=== PATIENT | male | born 1980 | race Caucasian/White ===

== ENCOUNTER 2017-02-17 16:10 | Emergency (ER) | payer OTHER ==
[~2017-02-17] VITALS: Ht 182.9 cm; Wt 66.3 kg
[~2017-02-17 16:10] MED LIST: ANDROGEL1.25 GM TD; ASPIR 8181 M1 PO
[2017-02-17] MEDS ORDERED: TESSALON PERLE100 MG PO (20:08)
[2017-02-17 20:32] VITALS: BP 109/68
== END 2017-02-17 20:32 | disposition home or self-care (01) ==
LOC: EME 16:10
DX: R05 Cough (principal); K21.9 Gastro-esophageal reflux disease without esophagitis
CPT/HCPCS: 71020; 99281; 99284

== ENCOUNTER → 2017-06-03 | Outpatient (CLI) | payer OTHER ==
[~2017-06-03] VITALS: Ht 182.9 cm; Wt 63.5 kg
[~2017-06-03] MED LIST changes: +ANDRODERM1 EACH TD; +ATARAX,VISTARIL25 MG PO; +AZITHROMYCIN500 M1 PO; +EFFEXOR50 MG PO; +OMEPRAZOLE40 M1 PO; +TESSALON PERLE100 MG PO
[2017-06-03 14:13] LABS: INTER. NORMALIZED RATIO 1.1; PROTHROMBIN TIME 12.4 SEC (10.2-12.9)
[2017-06-03 14:16] LABS: PTT 33.2 SEC (25-37)
[2017-06-03 15:00] LABS: HEMATOCRIT 33.6 % (38.0-50.0); MCH 37.1 PG (29.0-34.0); MCHC 37.8 G/DL (30.0-36.0); MCV 98.2 FL (86-99); MEAN PLAT.VOLUME 9.7 uM^3 (9.0-12.4); PLATELET COUNT 217 K/uL (156-360); RBC DIS.WIDTH-CV 12.2 % (11.8-14.6); RBC DIS.WIDTH-SD 43.9 % (39-53); RED BLOOD COUNT 3.42 M/uL (4.00-5.50)
== END | disposition home or self-care (01) ==
LOC: AMB 13:22
PROVIDERS: Internal Medicine Pulmonary Disease
PROC: 0B9B8ZZ Drainage of Left Lower Lobe Bronchus, Via Natural or Artificial Opening Endoscopic (ICD-10-PCS; principal; 2017-06-03)
DX: J18.9 Pneumonia, unspecified organism (principal); B96.1 Klebsiella pneumoniae [K. pneumoniae] as the cause of diseases classified elsewhere
CPT/HCPCS: 85027; 85610; 85730; 87070; 87077; 87116; 87205; 87206; 88108; 94667; J2250; J2310; J3010